=== PATIENT | female | born 1975 | race Caucasian/White ===

== ENCOUNTER 2024-05-24 22:12 | Emergency (ER) | payer SELFPAY ==
--- NOTE | ~2024-05-24 | XR_ITS ---
HISTORY: pain COMPARISON: None TECHNIQUE: 2 views of the left shoulder were performed. FINDINGS: No acute fracture. The glenohumeral and acromioclavicular joint space is maintained The visualized portion of the adjacent left lung is clear. The humeral head is well seated within the glenoid fossa. IMPRESSION: No acute fracture or anterior dislocation. Reviewed, dictated and finalized at location A. C SOFTWARE ENGINEER
[2024-05-24 22:13] VITALS: BP 171/82; PULSE 112; RESP 20; TEMP 36.4; O2SAT 100
--- OUTSIDE RECORDS SUMMARY | 2024-05-24 22:14 | XMS_ITS | Encounter Summary ---
Author Organization [facility] Address [address] [place] [address] Phone Care Team Providers Care Make Up Man Name Role Phone Leonides Sheriff MD Unavailable [phone] Garima Walters PT Unavailable Unavailable Pino, Vanita Rivera Unavailable Unavailable Jess Iyer PTA Unavailable Unavailable Isi Hernandez NP Primary Care Provider + [phone] Encounter Details Date Type Department Care Team (Latest Contact Info) Description 10/27/2020 Orders Only [facility] Scanning, Provider Social History Tobacco Use Types Packs/Day Years Used Date Smoking Tobacco: Former Smokeless Tobacco: Never AUDIT-C Answer Date Recorded Q1: How often do you have a drink containing alc ohol? Never 10/08/2020 Average Number of Drinks Not on file 021 Frequency of Binge Drinking Not on file 05/2020 Comments Unknown Sex and Gender Information Value Date Recorded Sex Assigned at Not on file Legal Sex Female 11:59 AM RAG SORTER AND CUTTER Gender Identity Not on file Sexual Orientation Not on file Occupation Industry Job Start Date Job End Date disabled Not on file Not on file Not on file documented as of this encounter Plan of Treatment Not on file documented as of this encounter Procedures Procedure Name Priority Date/Time Associated Diagnosis Comments SCAN - LABS 10/27/2020 documented in this encounter Results * SCAN - LABS (10/27/2020) us Provider Scanning Final Result documented in this encounter Visit Diagnoses Not on filedocumented in this encounter Additional Health Concerns Infection Onset Date Last Indicated Resolved Time COVID: Suspected 05/11/2023 05/11/2023 05/11/2023 10:52 PM RAG SORTER AND CUTTER documented as of this encounter Care Teams Make Up Man Relationship Specialty Start Date End Date Isi Hernandez, OFELIA [address] [address] PCP - General 05/06/20 [place] [id number] [address] Surgeon Orthopedic Surgery 03/20/17 Garima Walters, PT Physical Therapist Physical Therapy 04/25/17 Vanita Pino 05/09/17 Jess Iyer, ED TEACHER Quill Buncher And Sorter Physical Therapy 05/15/17 documented as of this encounter
--- OUTSIDE RECORDS SUMMARY | 2024-05-24 22:14 | XMS_ITS | Patient Health Summary ---
Author Organization [facility] Address [address] [place] [place] [address] Care Team Providers Care Ct Technologist Name Role Phone Nicolle Parekh Primary Care Provider [phone] Nicolle Parekh Unavailable Note from [facility],non-owned Affiliates and Associated Physician Practices is amultiple site organization consisting of ambulatory clinics and hospital sitesin [place], [place], [place] and [place]. This disclosure is being madepursuant to the Care Everywhere program and may not contain all information available regarding this patient. Last updated 17.[facility] Allergies * Prednisone(Unknown) Medications * Be aware that medications may not be up to date on this document. Alwaysverify current medications with the patient. * cyclobenzaprine (FLEXERIL) 10 MG tablet(Started 04/16/2017) * cetirizine (ALL DAY ALLERGY) 10 MG tablet(Started 03/07/2017) * FLUoxetine (PROZAC) 20 MG capsule(Started 04/12/2017) * montelukast (SINGULAIR) 10 MG tablet(Started 04/30/2017) * gabapentin (NEURONTIN) 300 MG capsule(Started 04/12/2017) * OXCARBAZEPINE PO * clonazePAM (KLONOPIN) 0.5 MG tablet Take 0.5 mg by mouth 2 times daily * TRUEPLUS LANCETS 30G MISC(Started 11/11/2018) * amLODIPine (NORVASC) 5 MG tablet(Started 11/11/2018) * cloNIDine (CATAPRES) 0.1 MG tablet(Started 02/24/2019) Take 0.1 mg by mouth * lithium CR (ESKALITH CR) 450 MG tablet(Started 06/04/2019) Active Problems No known active problems Social History Tobacco Use Types Packs/Day Years Used Date Smoking Tobacco: Never Smokeless Tobacco: Never Sex and Gender Information Value Date Recorded Sex Assigned at Not on file Gender Identity Not on file Sexual Orientation Not on file Last Filed Vital Signs Vital Sign Reading Time Taken Comments Blood Pressure - - Pulse - - Temperature - - Respiratory Rate - - Oxygen Saturation - - Inhaled Oxygen Concentration - - Weight 92.1 kg (203 lb) 01/07/2020 1:54 PM CDT Height 165.1 cm (5' 5 ) 01/07/2020 1:54 PM CDT Body Mass Index 33.78 01/07/2020 1:54 PM CDT Procedures * XR SPINE ENTIRE 2 OR 3VW(Performed 06/16/2019) Performed for Chronic midline low back pain with bilateral sciatica * XR LUMBAR SPINE 2 OR 3VW(Performed 05/08/2017) Results * XR SPINE ENTIRE 2 OR 3VW (06/16/2019 1:08 PM CDT) Anatomical Region Laterality Modality Spine Radiographic Gabrielle ging 06/16/2019 1:45 PM CDT Impressions 06/16/2019 1:48 PM CDT IMPRESSION: Instrumented spinal fusion at L4-5. This report was electronically signed by JEAN ARREDONDO MD on 06/16/2019 1:48 PM . Narrative 06/16/2019 1:48 PM CDT Exam: XR SPINE ENTIRE 2 view History: M54.41: Chronic midline low back pain with bilateral sciatica M54.42: Chronic midline low back pain with bilateral sciatica G89.29: Chronic midline low back pain with bilateral sciatica Comparison: None. Findings: Instrumented spinal fusion is present at L4-5 with posterior rods and screws. Instrumentation is intact. There is generally mild multilevel degenerative disc and joint disease with greater disc space narrowing at L5-S1 where it is moderate to severe. On the AP view there is mild thoracolumbar curvature of less than 10 degrees. Procedure Note Jean Arredondo MD - 06/16/2019 Exam: XR SPINE ENTIRE 2 view History: M54.41: Chronic midline low back pain with bilateral sciatica M54.42: Chronic midline low back pain with bilateral sciatica G89.29: Chronic midline low back pain with bilateral sciatica Comparison: None. Findings: Instrumented spinal fusion is present at L4-5 with posterior rods and screws. Instrumentation is intact. There is generally mild multilevel degenerative disc and joint disease with greater disc space narrowing at L5-S1 where it is moderate to severe. On the AP view there is mild thoracolumbar curvature of less than 10 degrees. IMPRESSION: Instrumented spinal fusion at L4-5. This report was electronically signed by JEAN ARREDONDO MD on06/16/2019 1:48 PM . Betty Santa MD DIAGNOSTIC IMAGING O RDERABLES * XR LUMBAR SPINE 2 OR 3VW (05/08/2017 2:21 PM HEARING SPECIALIST) Anatomical Region Laterality Modality Spine Other Impressions 05/08/2017 2:36 PM HEARING SPECIALIST IMPRESSION: Instrumented spinal fusion at L5-S1. This report was electronically signed by JEAN ARREDONDO MD on 05/08/2017 2:36 PM . Narrative 05/08/2017 2:36 PM HEARING SPECIALIST Exam: XR SPINE LUMBAR 2 view History: chronic pain Comparison: None. Findings: Instrumented posterior spinal fusion is present at L5-S1 with posterior vertical rods and pedicle screws. No fracture or subluxation is seen. There is moderate degenerative disc disease at L5-S1 and mild degenerative disc disease at the other levels. There is facet osteoarthritis at L5-S1. Procedure Note Jean Arredondo MD - 07/11/2017 Exam: XR SPINE LUMBAR 2 view History: chronic pain Comparison: None. Findings: Instrumented posterior spinal fusion is present at L5-S1 with posteriorvertical rods and pedicle screws. No fracture or subluxation is seen.There is moderate degenerative disc disease at L5-S1 and mild degenerativedisc disease at the other levels. There is facet osteoarthritis at L5-S1. IMPRESSION IMPRESSION: Instrumented spinal fusion at L5-S1. This report was electronically signed by JEAN ARREDONDO MD on 05/08/20172:36 PM . Karine Abdul PA-C DIAGNOSTIC IMAG ING ORDERABLES Care Teams Ct Technologist Relationship Specialty Start Date End Date Nicolle Parekh PA [address] [place] [address] PCP - General 09/13/18 Nicolle Parekh PA [address] [place] [address] 09/13/18
--- OUTSIDE RECORDS SUMMARY | 2024-05-24 22:14 | XMS_ITS ---
Author Organization [facility] Address [address] [place] [address] [place] [id number] Care Team Providers Care Director Of Casework Services Name Role Phone BALTA LOPEZ Primary Care Provider [phone] REASON FOR VISIT med issues MEDICATIONS Medication SIG (Take, Route, Frequency, Duration) Notes Start Date End Date Status amLODIPine Besylate 5 MG Take 1 tablet b y mouth once daily for 30 days Active Doxepin HCl 75 MG 1 tablet at bedtime Orally Once a day for 30 days Active Atorvastatin Calcium 80 MG 1 tablet Oral ly Once a day for 30 day(s) Active Encounters Encounter Location Date Provider Diagnosis [facility] [address] [facility] [address] [place] [phone] 03/15/2023 BALTA LOPEZ Medication refill Z76.0 ASSESSMENTS Encounter Date Diagnosis Assessment Notes Treatment Notes Treatment Clinical Notes 03/15/2023 Medication refill (ICD-10 - Z76.0) PLAN OF TREATMENT Medication Medication Name Sig Start Date Stop Date Notes amLODIPine Besylate 5 MG Take 1 tablet b y mouth once daily for 30 days Doxepin HCl 75 MG 1 tablet at bedtime Orally Once a day for 30 days Atorvastatin Calcium 80 MG 1 tablet Oral ly Once a day for 30 day(s)
--- OUTSIDE RECORDS SUMMARY | 2024-05-24 22:14 | XMS_ITS | Referral Summary ---
Author Organization [facility] Address [address] [place] [address] Care Team Providers Care Bun Icer Name Role Phone Nicolle Parekh Primary Care Provider [phone] Nicolle Parekh Unavailable Source Comments [facility],non-owned Affiliates and Associated Physician Practices is amultiple site organization consisting of ambulatory clinics and hospital sitesin [place], [place], [place] and [place]. This disclosure is being madepursuant to the Care Everywhere program and may not contain all information available regarding this patient. Last updated 17.[facility] Allergies Active Allergy Reactions Criticality Noted Date Comments Prednisone Unknown 08/21/2017 Medications * Be aware that medications may not be up to date on this document. Alwaysverify current medications with the patient. Medication Sig Dispensed Refills Start Date End Date Status cyclobenzaprine (FLEXERIL) 10 MG tablet 04/16/2017 A ctive cetirizine (ALL DAY ALLERGY) 10 MG tablet 03/07/2017 Act rufino FLUoxetine (PROZAC) 20 MG capsule 04/12/2017 Active montelukast (SINGULAIR) 10 MG tablet 04/30/2017 Active gabapentin (NEURONTIN) 300 MG capsule 04/12/2017 Active OXCARBAZEPINE PO Active clonazePAM (KLONOPIN) 0.5 MG tablet Take 0.5 mg by mouth 2 times daily Active TRUEPLUS LANCETS 30G MISC 11/11/2018 Active amLODIPine (NORVASC) 5 MG tablet 11/11/2018 Active cloNIDine (CATAPRES) 0.1 MG tablet Take 0.1 mg by mouth 02/24/2019 Active lithium CR (ESKALITH CR) 450 MG tablet 06/04/2019 Active Active Problems No known active problems Social [...] Mass Index 33.78 01/07/2020 1:54 PM CDT Plan of Treatment Not on file Advance Directives Documents on File Type Date Recorded Patient Medical Affairs Specialist Expl anation Adv Directive/Living Will/POA 06/18/2019 11:34 AM [facility] Care Teams Bun Icer Relationship Specialty Start Date End Date Nicolle Parekh PA [address] [place] [address] PCP - General 09/13/18 Nicolle Parekh PA [address] [place] [address] 09/13/18
--- OUTSIDE RECORDS SUMMARY | 2024-05-24 22:14 | XMS_ITS ---
Author Organization [facility] Address [address] [place], [place] [id number] Care Team Providers Care Resolution Specialist Name Role Phone BALTA LOPEZ Primary Care Provider Stacia Hernandez Unavailable [phone] REASON FOR VISIT 1 month f/u Encounters Encounter Location Date Provider Diagnosis [facility] [address] [place], [place] [id number] 04/12/2023 Stacia Hernandez PLAN OF TREATMENT No Information
--- OUTSIDE RECORDS SUMMARY | 2024-05-24 22:14 | XMS_ITS ---
Author Organization [facility] Address [address] [facility] [place] [address] Care Team Providers Care Service Agent Name Role Phone SAVANNAH HUFF, EHAB Primary Care Provider Unavailabl RITO Travis Unavailable [phone] SHANI SLAUGHTER Unavailable [phone] Encounters Encounter Location Date Provider Diagnosis [facility] [address] [address] 01/26/2023 SHANI SLAUGHTER PLAN OF TREATMENT No Information
--- OUTSIDE RECORDS SUMMARY | 2024-05-24 22:15 | XMS_ITS | Encounter Summary ---
Author Organization [facility] Address [address] [place] [address] Care Team Providers Care Boat Outfitter Name Role Phone Leonides Sheriff MD Unavailable [phone] Demarcus Chand SENIOR RELATIONSHIP MANAGER Primary Care Provider + Garima Walters PT Unavailable Unavailable Pino, Vanita Rivera Unavailable Unavailable Jess Iyer PTA Unavailable Unavailable Isi Hernandez NP Primary Care Provider [phone] Encounter Details Date Type Department Care Team (Late st Contact Info) Description 01/26/2020 Telephone [facility] [address] [place] [address] Jacobo Kelley, RT Social History Tobacco Use Types Packs/Day Years Used Date Smoking Tobacco: Former Smokeless Tobacco: Never Comments Unknown Sex and Gender Information Value Date Recorded Sex Assigned at Not on file Legal Sex Female 11:59 AM ALARM SECURITY OR SURVEILLANCE MONITOR Gender Identity Not on file Sexual Orientation Not on file Occupation Industry Job Start Date Job End Date disabled Not on file Not on file Not on file documented as of this encounter Plan of Treatment Not on file documented as of this encounter Visit Diagnoses Not on filedocumented in this encounter Additional Health Concerns Infection Onset Date Last Indicated Resolved Time COVID: Suspected 05/11/2023 05/11/2023 05/11/2023 10:52 PM ALARM SECURITY OR SURVEILLANCE MONITOR documented as of this encounter Care Teams Boat Outfitter Relationship Specialty Start Date End Date Demarcus Chand, OFELIA [address] [place] [address] [facility] [address] [place] [address] PCP - General 04/25/17 05/05/20 Isi Hernandez NP [address] [address] PCP - General 05/06/20 [place] [address] [address] Surgeon Orthopedic Surgery 03/20/17 Garima Walters, PT Physical Therapist Physical Therapy 04/25/17 Vanita Pino 05/09/17 Jess Iyer, WATER POLLUTION CONTROL TECHNICIAN Aerial Crop Duster Physical Therapy 05/15/17 documented as of this encounter
--- OUTSIDE RECORDS SUMMARY | 2024-05-24 22:15 | XMS_ITS | Clinical Summary ---
Author Organization [facility] Address [address] [place] [address] Care Team Providers Care Ornamental Bronze Worker Name Role Phone Nicolle Parekh Primary Care Provider [phone] Nicolle Parekh Unavailable Source Comments [facility],non-owned Affiliates and Associated Physician Practices is amultiple site organization consisting of ambulatory clinics and hospital sitesin [place], [place], [place] and [place]. This disclosure is being madepursuant to the Care Everywhere program and may not contain all information available regarding this patient. Last updated 17.[facility] Allergies Active Allergy Reactions Criticality Noted Date [...] 01/07/2020 1:54 PM CDT Plan of Treatment Health Maintenance Due Date Last Done Comments COLOGUARD (AGES 45-75) - COL ON CA SCREENING 1977 COLON MONITORING 1977 COLONOSCOPY - COLON CA SCREENING 1977 CT COLONOGRAPHY - COLON CA SCREENING 1977 Colorectal Cancer Screening 1977 FIT - COLON CA SCREENING 1977 FLEX SIG - COLON CA SCREENING 1977 LIPID TESTING 1977 MAMMOGRAM 1977 PAP SMEAR 1977 HIV SCREENING 1992 HEPATITIS C SCREENING 11/15/1995 DTAP/TDAP/TD VACCINES (1 - Tdap) 1996 HEPATITIS B VACCINE (1 of 3 - 19+ 3-dose series) 1996 SCREENING FOR DIABETES 11/28/2018 COVID-19 VACCINE ( - 2023-2 5 season) 2023 INFLUENZA VACCINE (#1) 2023 DEPRESSION SCREENING 04/09/2024 ZOSTER VACCINE (1 of 2) 11/20/2027 HIB VACCINE Aged Out No longer eligi ble based on patient's age to complete this topic HPV VACCINE Aged Out No longer eligi ble based on patient's age to complete this topic MENINGOCOCCAL (Group B) VACCINE Aged Out No longer eligible based on patient's age to complete this topic MENINGOCOCCAL VACCINE Aged Out No mike rosa isela eligible based on patient's age to complete this topic PNEUMOCOCCAL VACCINE Aged Out No long er eligible based on patient's age to complete this topic Advance Directives Documents on File Type Date Recorded Patient Hog Grader Expl anation Adv Directive/Living Will/POA 06/18/2019 11:34 AM [facility] Care Teams Ornamental Bronze Worker Relationship Specialty Start Date End Date Nicolle Parekh PA [address] [place] [phone] PCP - General 09/13/18 Nicolle Parekh PA [address] [place] [phone] 09/13/18
--- OUTSIDE RECORDS SUMMARY | 2024-05-24 22:15 | XMS_ITS ---
Author Organization [facility] Address [address] [facility] [place] [address] Care Team Providers Care Detacher Name Role Phone SAVANNAH HUFF, EHAB Primary Care Provider Unavailabl e RITO NUÑEZ Unavailable [phone] ELISSA MONTEMAYOR Unavailable [phone] Encounters Encounter Location Date Provider Diagnosis [facility] [address] [place] [address] 02/09/2023 ELISSA MONTEMAYOR PLAN OF TREATMENT No Information
--- OUTSIDE RECORDS SUMMARY | 2024-05-24 22:15 | XMS_ITS | Referral Summary ---
Author Organization [facility] [address] [place] [address] Care Team Providers Care Digital Performance Analyst Name Role Phone Leonides Sheriff MD Unavailable [phone] Garima Walters PT Unavailable Unavailable Pino, Vanita Rivera Unavailable Unavailable Jess Iyer PTA Unavailable Unavailable sIi Hernandez NP Primary Care Provider [phone] Allergies Active Allergy Reactions Criticality Noted Date Comments Methylprednisolone Other (See comments) Low 019 Patient reports history of reaction when mixed with heavy pain killers like Vicodin. Prednisone Unknown 08/21/2017 Propranolol Rash Medium 08/22/2021 Quetiapine Hives Medium 08/22/2021 Medications cyclobenzaprin e (FLEXERIL) 10 mg tablet 10/31/19 17 Active gabapentin (NEURONTIN) 300 mg capsule 10/27/19 17 Active HYDROcodone-ac etaminophen (NORCO) 5-325 mg per tabletIndicati ons:Pain 11/22/19 17 Active lamoTRIgine (LaMICtal) 100 mg tablet 10/27/19 17 Active meloxicam (MOBIC) 15 mg tablet Take 15 mg by mouth daily 10/31/19 17 Active montelukast (SINGULAIR) 10 mg tablet 10/31/19 17 Active polyethylene glycol (MIRALAX) 17 gram packet 11/25/19 17 Active traMADol (ULTRAM) 50 mg tablet 11/08/19 17 Active traZODone (DESYREL) 100 mg tablet 10/27/19 17 Active amoxicillin (AMOXIL) 250 mg capsule Take 250 mg by mouth 3 (three) times a day. Active metroNIDAZOLE (FLAGYL) 500 mg tablet Take 500 mg by mouth 2 (two) times a day Active ergocalciferol , vitamin D2, 10 mcg (400 unit) tablet Take 400 Units by mouth daily Active azithromycin (Zithromax Z-Srikanth) 250 mg tabletIndicati ons:Acute maxillary sinusitis, recurrence not specified Take 2 tabs (500 mg) by mouth today, then 1 tab (250 mg) daily for 4 days. 6 tablet 03/16/20 21 Active azelastine (ASTELIN) 137 mcg (0.1 %) nasal sprayIndicatio ns:Allergic rhinitis due to animal hair and dander Administer 2 sprays into each nostril 2 (two) times a day Use in each nostril as directed 30 mL 5 03/18/20 21 Active blood sugar diagnostic (ONETOUCH ULTRA BLUE TEST STRIP [facility]) USE 1 STRIP TO CHECK GLUCOSE ONCE DAILY Active guaiFENesin ER (Mucinex) 600 mg 12 hr tablet 02/24/20 17 Active ibuprofen (ADVIL,MOTRIN) 800 mg tablet 04/30/19 18 Active albuterol HFA (PROVENTIL HFA,VENTOLIN HFA,PROAIR HFA) 90 mcg/actuation inhaler INHALE 2 PUFFS BY MOUTH EVERY 4 HOURS NEEDED Active ALPRAZolam (XANAX) 0.25 mg tablet Take 1 tab 60 min prior to procedure, repeat dose 30 min later as needed 03/13/20 19 Active amLODIPine (NORVASC) 10 mg tablet 06/10/19 22 Active clonazePAM (KlonoPIN) 0.5 mg tablet Take 0.5 mg by mouth 2 (two) times a day Active cloNIDine (CATAPRES) 0.1 mg tablet Take 0.1 mg by mouth 02/25/20 19 Active FLUoxetine (PROzac) 20 mg capsule 04/12/19 18 Active lithium ER (ESKALITH) 450 mg CR tablet 06/04/19 20 Active camphor-mentho L (SARNA) lotion Apply to areas of itching twice daily 05/19/19 21 Active OXcarbazepine (TRILEPTAL) 600 mg tablet Take 600 mg by mouth 2 (two) times a day 02/25/20 19 Active QUEtiapine (SEROquel) 100 mg tablet 04/12/19 18 Active TiZANidine (ZANAFLEX) 2 mg capsule Take 2 mg by mouth 3 (three) times a day as needed 06/24/19 20 Active triamcinolone (KENALOG) 0.5 % ointment APPLY A THIN LAYER TO THE AFFECTED AREA(S) BY TOPICAL ROUTE 2 TIMES PER DAY Active cetirizine (ZyrTEC) 10 mg tabletIndicati ons:Pruritus Take 1 tablet (10 mg total) by mouth daily 30 tablet 5 09/10/19 22 Active doxepin (SINEquan) 25 mg capsuleIndicat ions:Pruritus TAKE 2 CAPSULES BY MOUTH NIGHTLY 60 capsule 07/15/19 23 Active hydrOXYzine (ATARAX) 25 mg tablet TAKE 1 TABLET BY MOUTH THREE TIMES DAILY NEEDED FOR ITCHING 90 tablet 07/15/19 23 Active promethazine-D M (PROMETHAZINE- DM) 1.25-3 mg/mL syrupIndicatio ns:Upper respiratory tract infection, unspecified type Take 5 mL by mouth 4 (four) times a day as needed for cough (And runny nose) Collaborating physician Espinoza Hamilton MD 118 mL 05/11/19 24 Active naproxen (NAPROSYN) 375 mg tabletIndicati ons:Upper respiratory tract infection, unspecified type,Acute sinusitis, recurrence not specified, unspecified location Take 1 tablet (375 mg total) by mouth 2 (two) times a day with meals P.r.n. pain and/or fever. Take with food. Collaborating physician Espinoza Hamilton MD 20 tablet 05/11/19 24 Active fexofenadine (Prema Allergy) 180 mg tablet Take 1 tablet daily in morning 05/19/19 21 2021 Discontinued Active Problems Problem Noted Date Diagnosed Date Upper respiratory tract infection 05/11/2023 Essential hypertension 04/15/2019 Bipolar disorder 09/25/2016 Immunizations Name Administration Dates Next Due Influenza, Quadrivalent, Split, Intramuscular Tdap 04/09/2015 Social History Tobacco Use Types Packs/Day Years Used Date Smoking Tobacco: Former Smokeless Tobacco: Never AUDIT-C Answer Date Recorded Q1: How often do you have a drink containing alc ohol? Never 10/08/2020 Average Number of Drinks Not on file 021 Frequency of Binge Drinking Not on file 05/2020 Personal Safety Answer Date Recorded Have you ever been in or are you currently in a harmful physical or emotional relationship or is someone making you feel afraid or unsafe? Denies 05/11/2023 Comments No Sex and Gender Information Value Date Recorded Sex Assigned at Not on file Legal Sex Female 11:59 AM RADIATOR SPECIALIST Gender Identity Not on file Sexual Orientation Not on file Occupation Industry Job Start Date Job End Date disabled Not on file Not on file Not on file Last Filed Vital Signs Vital Sign Reading Time Taken Comments Blood Pressure 146/87 05/11/2023 8:13 PM RADIATOR SPECIALIST Pulse 99 05/11/2023 8:13 PM RADIATOR SPECIALIST Temperature 36.1 C (96.9 F) 05/11/2023 8:13 PM RADIATOR SPECIALIST Respiratory Rate 16 05/11/2023 8:13 PM RADIATOR SPECIALIST Oxygen Saturation 98% 05/11/2023 8:13 PM RADIATOR SPECIALIST Inhaled Oxygen Concentration - - Weight 92.1 kg (203 lb) 05/11/2023 8:13 PM RADIATOR SPECIALIST Height 162.6 cm (5' 4 ) 05/11/2023 8:13 PM RADIATOR SPECIALIST Body Mass Index 34.84 05/11/2023 8:13 PM RADIATOR SPECIALIST Plan of Treatment Not on file Insurance [facility] Care Teams Digital Performance Analyst Relationship Specialty Start Date End Date Isi Hernandez NP [address] [address] PCP - General 05/06/20 [place] [id number] [address] Surgeon Orthopedic Surgery 03/20/17 Garima Walters, PT Physical Therapist Physical Therapy 04/25/17 Vanita Pino 05/09/17 Jess Iyer, ASBESTOS TEXTILE SUPERVISOR Director Of Sleep Physical Therapy 05/15/17
--- OUTSIDE RECORDS SUMMARY | 2024-05-24 22:15 | XMS_ITS ---
Author Organization [facility] Address [address] [place], [place] [id number] Care Team Providers Care Defense Travel Administrator Name Role Phone BALTA LOPEZ Primary Care Provider Abi Rothman [phone] REASON FOR VISIT Preparation for 04/12/2023 follow-up appointment Encounters Encounter Location Date Provider Diagnosis [facility] [address] [place], [place] [id number] 04/10/2023 Abi Rothman PLAN OF TREATMENT No Information
--- OUTSIDE RECORDS SUMMARY | 2024-05-24 22:15 | XMS_ITS | Clinical Summary ---
Author Organization [facility] [address] [place] [address] Care Team Providers Care Diesel Engine Fitter Name Role Phone Leonides Sheriff MD Unavailable [phone] Garima Walters PT Unavailable Unavailable Pino, Vanita Rivera Unavailable Unavailable Jess Iyer PTA Unavailable Unavailable Isi Hernandez NP Primary Care Provider [phone] Allergies Active Allergy Reactions Criticality Noted Date [...] sugar diagnostic (ONETOUCH ULTRA BLUE TEST STRIP [facility]) USE 1 STRIP TO CHECK GLUCOSE ONCE [...] Due Influenza, Quadrivalent, Split, Intramuscular Tdap 04/09/2015 Surgical History Surgery Date Site/Laterality Comments BACK SURGERY 04/09/2003 - 04/08/2004 L4 L5 TUBAL LIGATION STOMACH SURGERY Infection Near Belly Button FL UPPER GI AIR CONTRAST W KUB 08/28/2019 Left FL UPPER GI AIR CONTRAST W KUB 04/30/2019 Left Medical History Medical History Date Comments Anxiety Depression Family History Medical History Relation Name Comments Depression Father Diabetes Mother Asthma Sister Relation Name Status Comments Father Mother Sister Social History Tobacco Use Types Packs/Day Years Used Date Smoking Tobacco: Former Smokeless Tobacco: Never AUDIT-C Answer Date Recorded Q1: How often do you have a drink containing alc ohol? Never 10/08/2020 Average Number of Drinks Not on file Frequency of Binge Drinking Not on file 05/2020 Personal Safety Answer Date Recorded Have you ever been in or are you currently in a harmful physical or emotional relationship or is someone making you feel afraid or unsafe? Denies 05/11/2023 Comments No Sex and Gender Information Value Date Recorded Sex Assigned at Not on file Legal Sex Female 11:59 AM STATISTICAL PROGRAMMER Gender Identity Not on file Sexual Orientation Not on file Occupation Industry Job Start Date Job End Date disabled Not on file Not on file Not on file Obstetrics History Last Filed Vital Signs Vital Sign Reading Time Taken Comments Blood Pressure 146/87 05/11/2023 8:13 PM STATISTICAL PROGRAMMER Pulse 99 05/11/2023 8:13 PM STATISTICAL PROGRAMMER Temperature 36.1 C (96.9 F) 05/11/2023 8:13 PM STATISTICAL PROGRAMMER Respiratory Rate 16 05/11/2023 8:13 PM STATISTICAL PROGRAMMER Oxygen Saturation 98% 05/11/2023 8:13 PM STATISTICAL PROGRAMMER Inhaled Oxygen Concentration - - Weight 92.1 kg (203 lb) 05/11/2023 8:13 PM STATISTICAL PROGRAMMER Height 162.6 cm (5' 4 ) 05/11/2023 8:13 PM STATISTICAL PROGRAMMER Body Mass Index 34.84 05/11/2023 8:13 PM STATISTICAL PROGRAMMER Plan of Treatment Health Maintenance Due Date Last Done Comments Breast Cancer Screening-Mammogram 1977 Cervical Cancer Screening 1977 Colon Cancer Screening-Colonoscopy 1977 Depression Screening 1977 Hepatitis C Screening 1977 Hepatitis B Screening 11/20/1995 Regular Well Visit/Exam 18-64 11/20/1995 Influenza Vaccine (#1) 2023 03/07/2017 DTaP/Tdap/Td Vaccine (2 - Td or Tdap) 04/09/2025 04/09/2015 HPV Vaccines Aged Out No longer eligi ble based on patient's age to complete this topic Pneumococcal vaccine <65 Aged Out No longer eligible based on patient's age to complete this topic Insurance [employer] [facility] [employer] [facility] [employer] Care Teams Diesel Engine Fitter Relationship Specialty Start Date End Date Isi Hernandez NP [address] [address] PCP - General 05/06/20 [place] [address] [address] Surgeon Orthopedic Surgery 03/20/17 Garima Waltres, PT Physical Therapist Physical Therapy 04/25/17 Vanita Pino 05/09/17 Jess Iyer, FIELD PARTY MANAGER Accredited Legal Secretary Physical Therapy 05/15/17
--- OUTSIDE RECORDS SUMMARY | 2024-05-24 22:15 | XMS_ITS | Patient Health Record ---
Author Organization [facility] Address [address] [facility] [place] [address] Care Team Providers Care Precision Lens Technician Name Role Phone SAVANNAH HUFF, EHAB Primary Care Provider Unavailabl RITO Travis Unavailable [phone] REASON FOR REFERRAL No Information PLAN OF TREATMENT No Information Insurance Providers Payer Name Payer Address Payer Phone Subscriber Number Group Number Insured Name Patient Relationship to Insured Coverage Start Date Coverage End Date [employer] [address] [address] [place] [address] [phone] [id number] Silvino Carrillo Self - patient is the insured
--- OUTSIDE RECORDS SUMMARY | 2024-05-24 22:15 | XMS_ITS | Encounter Summary ---
Author Organization [facility] Address [address] [place] [address] Care Team Providers Care Gypsum Calciner Name Role Phone Leonides Sheriff MD Unavailable [phone] Garima Walters PT Unavailable Unavailable Pino, Vanita Rivera Unavailable Unavailable Jess Iyer PTA Unavailable Unavailable Isi Hernandez ENERGY SCHEDULER Primary Care Provider [phone] Encounter Details Date Type Department Care Team (Late st Contact Info) Description 07/30/2020 Telephone [facility] [address] [place] [id number] Alma Jones, RT Social History Tobacco Use Types Packs/Day Years Used Date Smoking Tobacco: Former Smokeless Tobacco: Never Comments Unknown Sex and Gender Information Value Date Recorded Sex Assigned at Not on file Legal Sex Female 11:59 AM JEWEL BLOCKER AND SAWYER Gender Identity Not on file Sexual Orientation [...] COVID: Suspected 05/11/2023 05/11/2023 05/11/2023 10:52 PM JEWEL BLOCKER AND SAWYER documented as of this encounter Care Teams Gypsum Calciner Relationship Specialty Start Date End Date Isi Hernandez NP [address] [address] PCP - General 05/06/20 [place] [address] [facility] [address] [place] [address] Surgeon Orthopedic Surgery 03/20/17 Garima Walters, PT Physical Therapist Physical Therapy 04/25/17 Vanita Pino 05/09/17 Jess Iyer, LAYOUT MECHANIC Spareribs Trimmer Physical Therapy 05/15/17 documented as of this encounter
--- OUTSIDE RECORDS SUMMARY | 2024-05-24 22:15 | XMS_ITS | Patient Health Record ---
Author Organization [facility] Address [address] [place], [place] [id number] Care Team Providers Care Horseradish Maker Name Role Phone BALTA LOPEZ Primary Care Provider [phone] ALLERGIES No Known Allergies REASON FOR REFERRAL No Information MEDICATIONS Medication SIG (Take, Route, Frequency, Duration) Notes Start Date End Date Status amLODIPine Besylate 5 MG Take 1 tablet b y mouth once daily for 30 days Active hydrOXYzine Pamoate 25 MG 1 capsule Oral ly three times a day for itching Active Doxepin HCl 75 MG 1 tablet at bedtime Orally Once a day for 30 days Active Zofran ODT 4 MG 1 tablet on the tongue and allow to dissolve Orally Once a day for 30 day(s) Active busPIRone HCl 15 MG 1 tablet Oral Twice a day Active buPROPion HCl ER (XL) 300 MG Oral for 30 Active Atorvastatin Calcium 80 MG 1 tablet Oral ly Once a day for 30 day(s) Active Cyclobenzaprine HCl 10 MG 1 tablet at be dtime as needed Orally Once a day for 30 day(s) Not-Taking ALPRAZolam 0.25 MG 1 tablet Orally Twic e a day Not-Taking Methocarbamol 500 MG 1 tablet Oral Four times a day as needed Active Cetirizine HCl 10 MG 1 tablet Orally Onc e a day for 30 day(s) Not-Taking traZODone HCl 50 MG 1 tablet at bedtime Oral Once a day Not-Taking cloNIDine HCl 0.1 MG 1 tablet Orally Onc e a day for 30 day(s) Not-Taking OXcarbazepine 150 MG 1 tablet Orally Twi ce a day Active ARIPiprazole 10 MG 1 tablet Orally Once a day for 30 day(s) Active Montelukast Sodium 10 MG 1 tablet Orally Once a day for 30 day(s) Not-Taking Benztropine Mesylate 1 MG 1 tablet Orall y Once a day for 30 day(s) Active Meloxicam 15 MG 1 tablet Orally Once a day for 30 day(s) Not-Taking Gabapentin 600 MG 1 tablet Orally Once a day for 30 day(s) Active FLUoxetine HCl 20 MG 1 capsule Orally On ce a day for 30 day(s) Not-Taking Robaxin 500 MG 1.5 tablets Orally every 4 hrs for 30 day(s) Active SOCIAL HISTORY Tobacco Use: Social History Observation Description Date Details (start date - stop date) Never Smoker NA - NA Sex Assigned At : Social History Observation Description Sex Assigned At Unknown Tobacco Use/Smoking Question Answer Notes Are you a nonsmoker Additional Findings: Tobacco Non-User Aggressive non-smoker Tobacco use other than smoking: Question Answer Notes Are you an other tobacco user? Yes V ape PROBLEMS Problem Type ICD Code Onset Dates Problem Status W/U Status Risk SNOMED Code Notes Problem Essential (primary) hypertension (I10) Active confirmed 33779392 Problem Mood disorder (F39) Active confirmed 33903095 Problem Depression with anxiety (F41.8) Active confirmed 098192810 Problem Bipolar affective disorder, remission status unspecified (F31.9) Active confirmed 84402469 Problem Muscle spasm (M62.838) Active confirmed 95894522 Problem Thyroid nodule (E04.1) Active confirmed Thyroid nodule (881615983) Problem Seasonal allergies (J30.2) Active confirmed 665103328 Problem Chronic insomnia (F51.04) Active confirmed 280379204 Problem Borderline type 2 diabetes mellitus (R73.03) Active confirmed 395510174 Problem Low back pain, unspecified (M54.50) Active confirmed 186759866 PLAN OF TREATMENT Pending Test Test Name Order Date CBC and Plt w Diff 05/03/2022 CMP 05/03/2022 Folic Acid Level 05/03/2022 Hga1c 05/03/2022 Lipid Panel w Direct LDL. 05/03/2022 Magnesium Level 05/03/2022 Microalbumin Urine Random 05/03/2022 TSH 05/03/2022 Vitamin B12 Level 05/03/2022 Vitamin D 25 Hydroxy Level 05/03/2022 US Thyroid 03/14/2023 Insurance Providers Payer Name Payer Address Payer Phone Subscriber Number Group Number Insured Name Patient Relationship to Insured Coverage Start Date Coverage End Date [facility] [address] [address] [place] [id number] Sarah Carrillo Self - patient is the insured MEDICAL (GENERAL) HISTORY Medical History History ICD Code Biopoloar Depression Hypertension Surgical History Surgery Date(Month/Year) Tubal 1999 Back Lower Lumbar 2004
--- OUTSIDE RECORDS SUMMARY | 2024-05-24 23:51 | XMS_ITS | Clinical Summary ---
Author Organization [facility] Address [address] [facility] [place] [address] Care Team Providers Care Aircraft Servicer Name Role Phone Nicolle Parekh Primary Care Provider [phone] Nicolle Parekh Unavailable Source Comments [facility],non-owned Affiliates and Associated Physician Practices is amultiple site organization consisting of ambulatory clinics and hospital sitesin [place], [place], [place] and [place]. This disclosure is being madepursuant to the Care Everywhere program and may not contain all information available regarding this patient. Last updated 17.[facility] Allergies Active Allergy Reactions Criticality Noted Date [...] Documents on File Type Date Recorded Patient Welfare Administrator Expl anation Adv Directive/Living Will/POA 06/18/2019 11:34 AM [facility] Care Teams Aircraft Servicer Relationship Specialty Start Date End Date Nicolle Parekh PA [address] [place] [id number] PCP - General 09/13/18 Nicolle Parekh PA [address] [place] [phone] 09/13/18
--- OUTSIDE RECORDS SUMMARY | 2024-05-24 23:51 | XMS_ITS | Patient Health Summary ---
Author Organization [facility] Address [address] [place] [address] Care Team Providers Care Packaging Tech Name Role Phone Nicolle Parekh Primary Care Provider [phone] Nicolle Parekh Unavailable Note from [facility],non-owned Affiliates and Associated Physician Practices is amultiple site organization consisting of ambulatory clinics and hospital sitesin [place], [place], [place]. This disclosure is being madepursuant to the Care Everywhere program and may not contain all information available regarding this patient. Last updated 17.[facility] Allergies * Prednisone(Unknown) Medications * Be aware [...] SPINE 2 OR 3VW (05/08/2017 2:21 PM LIQUOR GRINDING MILL OPERATOR) Anatomical Region Laterality Modality Spine Other Impressions 05/08/2017 2:36 PM LIQUOR GRINDING MILL OPERATOR IMPRESSION: Instrumented spinal fusion at L5-S1. This report was electronically signed by JEAN ARREDONDO MD on 05/08/2017 2:36 PM . Narrative 05/08/2017 2:36 PM LIQUOR GRINDING MILL OPERATOR Exam: XR SPINE LUMBAR 2 view History: [...] PA-C DIAGNOSTIC IMAG ING ORDERABLES Care Teams Packaging Tech Relationship Specialty Start Date End Date Nicolle Parekh PA [address] [place] [address] PCP - General 09/13/18 Nicolle Parekh PA [address] [place] [address] 09/13/18
--- OUTSIDE RECORDS SUMMARY | 2024-05-24 23:51 | XMS_ITS | Referral Summary ---
Author Organization [facility] Address [address] [facility] [place] [address] Care Team Providers Care Press Cutter Name Role Phone Nicolle Parekh Primary Care Provider [phone] Nicolle Parekh Unavailable Source Comments [facility],non-owned Affiliates and Associated Physician Practices is amultiple site organization consisting of ambulatory clinics and hospital sitesin [place], [place], [place] and [place]. This disclosure is being madepursuant to the Care Everywhere program and may not contain all information available regarding this patient. Last updated 17.[facility] Allergies Active Allergy Reactions Criticality Noted Date [...] Documents on File Type Date Recorded Patient Telecom Sales Consultant Expl anation Adv Directive/Living Will/POA 06/18/2019 11:34 AM [facility] Care Teams Press Cutter Relationship Specialty Start Date End Date Nicolle Parekh PA [address] [place] [address] PCP - General 09/13/18 Nicolle Parekh PA [address] [place] [phone] 09/13/18
--- OUTSIDE RECORDS SUMMARY | 2024-05-24 23:52 | XMS_ITS | Clinical Summary ---
Author Organization [facility] [employer] Address [address] [place] [address] Care Team Providers Care Management Coordinator Name Role Phone Pcp, No Primary Care Provider Unavailabl e Allergies Active Allergy Reactions Criticality Noted Date Comments Prednisone 02/18/2024 Has no idea what happens just knows she can't have it. Medications semaglutide (RYBELSUS) 3 mg Tab Take 3 mg by mouth daily. Active cyclobenzaprine (FLEXERIL) 10 MG tablet Take 1 tablet by mouth 3 (three) times daily as needed for Muscle spasms. Active hydrOXYzine (ATARAX) 10 MG tablet Take 1 tablet by mouth 3 (three) times daily as needed. Active trazodone (DESYREL) 50 MG tablet Take 1 tablet by mouth nightly. Active gabapentin (NEURONTIN) 600 MG tablet Take 1 tablet by mouth 3 (three) times daily as needed. Active glipizide (GLUCOTROL) 5 MG tabletIndicatio ns:Diabetes Take 1 tablet by mouth 2 times daily before meals for 30 days for Diabetes. 60 tablet 02/19/2024 1:49 PM PHOTO LAB TECHNICIAN 02/18/2024 Active blood sugar diagnostic StrpIndications :Diabetes Use as directed once daily. 90 each 3 02/19/2024 1:49 PM PHOTO LAB TECHNICIAN 02/18/2024 02/18/20 25 Active blood sugar diagnostic (ONETOUCH VERIO TEST STRIPS) StrpIndications :Diabetes Check blood sugar twice daily for Diabetes. 100 strip 5 02/19/2024 Active blood-glucose meter kitIndications: Encounter for medication refill Use as instructed. 1 each 02/20/2024 Active butalbital-acet aminophen-caffe ine (FIORICET) 50-325-40 mg per tabletIndicatio ns:Migraine Take 1 tablet by mouth every 6 hours as needed for Pain for Migraine. 15 tablet 04/01/2024 10:24 AM PHOTO LAB TECHNICIAN 03/31/2024 Active amLODIPIne (NORVASC) 5 MG tabletIndicatio ns:High Blood Pressure Take 1 tablet by mouth daily for High Blood Pressure. 90 tablet 04/10/2024 2:00 PM PHOTO LAB TECHNICIAN 04/09/2024 07/10/19 25 Active doxepin (SINEQUAN) 25 MG capsuleIndicati ons:Anxiety Take 1 capsule by mouth nightly for Anxiety. 90 capsule 04/10/2024 2:00 PM PHOTO LAB TECHNICIAN 04/09/2024 Active Active Problems No known active problems Encounters Date Type Department Care Team Description 04/09/2024 2:16 PM PHOTO LAB TECHNICIAN - 04/09/2024 2:37 PM PHOTO LAB TECHNICIAN Hospital Encounter [facility] [address] [address] Encounter for medication refill Discharge Disposition: (A) DC to Home or Place of Residence 03/31/2024 3:57 PM PHOTO LAB TECHNICIAN - 03/31/2024 5:58 PM PHOTO LAB TECHNICIAN Hospital Encounter [facility] [address] [address] Acute nonintractable headache, unspecified headache type (Primary Dx) Discharge Disposition: (A) DC to Home or Place of Residence from Last 3 Months Family History Relation Name Status Comments Father Alive Mother Social History Tobacco Use Types Packs/Day Years Used Date Smoking Tobacco: Never Smokeless Tobacco: Never Tobacco Cessation:Counseling Given: Not Answered Alcohol Use Standard Drinks/Week Comments Not Currently 0 (1 standard drink = 0.6 oz pur e alcohol) occasionally Food Insecurity Answer Date Recorded Within the past 12 months, y ou worried that your food would run out before you got the money to buy more. Never true 04/09/19 Within the past 12 months, t he food you bought just didn t last and you didn t have money to get more. Never true 04/09/2024 Patient Safety Answer Date Recorded Within the past 12 months, y ou worried that your food would run out before you got the money to buy more. Never true 04/09/19 25 Within the past 12 months, t he food you bought just didn t last and you didn t have money to get more. Never true 04/09/2024 Comments No Sex and Gender Information Value Date Recorded Sex Assigned at Not on file Legal Sex Female 1:45 PM PHOTO LAB TECHNICIAN Gender Identity Not on file Sexual Orientation Not on file Last Filed Vital Signs Vital Sign Reading Time Taken Comments Blood Pressure 144/83 04/09/2024 1:45 PM PHOTO LAB TECHNICIAN Pulse 98 04/09/2024 1:45 PM PHOTO LAB TECHNICIAN Temperature 36.6 C (97.9 F) 04/09/2024 1:45 PM PHOTO LAB TECHNICIAN Respiratory Rate 18 04/09/2024 1:45 PM PHOTO LAB TECHNICIAN Oxygen Saturation 97% 04/09/2024 1:45 PM PHOTO LAB TECHNICIAN Inhaled Oxygen Concentration - - Weight 86.2 kg (190 lb) 02/02/2022 10:36 AM CDT Height 162.6 cm (5' 4 ) 02/02/2022 10:36 AM CDT Body Mass Index 32.61 02/02/2022 10:36 AM CDT Plan of Treatment Health Maintenance Due Date Last Done Comments HEP C SCREENING 1977 HIV ANNUAL TESTING 11/20/1995 HEPATITIS B VACCINES (1 of 3 - 19+ 3-dose series) 1996 PAP TEST 1998 MAMMOGRAM 2017 COLOGUARD 2022 COLONOSCOPY 2022 COLORECTAL CANCER SCREENING NEW 2022 FIT 2022 FOBT 2022 SIGMOIDOSCOPY 2022 COVID 19 VACCINE (1 - 2023-2 5 season) 2023 INFLUENZA VACCINE (#1) 2024 03/07/2017 HEPATITIS A VACCINES Aged Out No long er eligible based on patient's age to complete this topic HPV VACCINES Aged Out No longer eligi ble based on patient's age to complete this topic MENINGOCOCCAL VACCINES Aged Out No lo nger eligible based on patient's age to complete this topic PNEUMONIA VACCINE 0-5 AND AT RISK 6-64 Aged Out No longer eligible b ased on patient's age to complete this topic ROTAVIRUS VACCINES Aged Out No longer eligible based on patient's age to complete this topic Insurance [employer]-OUT OF STATE SELF PAY Care Teams Management Coordinator Relationship Specialty Start Date End Date Pcp, No PCP - General 02/02/22
--- NOTE | 2024-05-24 23:58 | ED.GENADULT ---
HPI - General Adult General Chief complaint: Extremity Problem,Nontraumatic Stated complaint: left shoulder pain Time Seen by Provider: 05/24/24 23:44 History of Present Illness HPI narrative: This is a 48-year-old female presenting for 1 month of shoulder pain. Pain is gotten progressively worse since her mother right after [place]. Patient is tearful during the interview and continuously references how much stress she is under. When redirected to her arm pain it is starting in the trapezius radiates down her arm. She has taking gabapentin no relief. She is able to move the arm without difficulty. Birth Certificate Clerk strength is intact. She does she has been moving significant furniture since her mother passed Related Data Allergies Allergy/AdvReac Type Severity Reaction Status Date / Time prednisone Allergy Mild Unknown Verified 05/24/24 22:18 Exam Narrative: APPEARANCE: No apparent distress. Head: atraumatic. EYES: EOMI, NOSE: Atraumatic NECK: Trachea midline no midline cervical tenderness RESPIRATORY: No increased rate of breathing CARDIOVASCULAR: RRR, ABDOMINAL: Non-distended MUSCULOSKELETAl: Focal exam of the left arm revealed tenderness over the left trapezius. No pain range of motion of the left shoulder or elbow. Birth Certificate Clerk strength is intact. Pulses are strong refills less than 2 seconds. NEURO: Alert. Moving 4/4 extremities SKIN:: Warm, dry. Normal color PSYCHIATRIC: Normal affect Course Vital Signs Vital signs: Vital Signs Temperature 97.5 F L 05/24/24 22:13 Pulse Rate 112 H 05/24/24 22:13 Respiratory Rate 20 05/24/24 22:13 Blood Pressure 171/82 H 05/24/24 22:13 Pulse Oximetry 100 05/24/24 22:13 Oxygen Delivery Room Air 05/24/24 22:13 Temperature 97.5 F L 05/24/24 22:13 Pulse Rate 112 H 05/24/24 22:13 Respiratory Rate 20 05/24/24 22:13 Blood Pressure 171/82 H 05/24/24 22:13 Pulse Oximetry 100 05/24/24 22:13 Oxygen Delivery Room Air 05/24/24 22:13 Medical Decision Making MDM Narrative Medical decision making narrative: -Course: 48-year-old female presenting with left shoulder pain x1 month. X-rays negative for acute fracture dislocation. No findings on physical exam outside some tenderness to the trapezius. Patient's pain was treated and she is discharged with primary care follow-up -DDX includes but is not limited to: Cervical radiculopathy, muscle strain, muscle spasm, stress reaction, fracture, impingement syndrome, calcific tendinitis Vital Signs Vital Signs: Vital Signs Temperature 97.5 F L 05/24/24 22:13 Pulse Rate 112 H 05/24/24 22:13 Respiratory Rate 20 05/24/24 22:13 Blood Pressure 171/82 H 05/24/24 22:13 Pulse Oximetry 100 05/24/24 22:13 Oxygen Delivery Room Air 05/24/24 22:13 Temperature 97.5 F L 05/24/24 22:13 Pulse Rate 112 H 05/24/24 22:13 Respiratory Rate 20 05/24/24 22:13 Blood Pressure 171/82 H 05/24/24 22:13 Pulse Oximetry 100 05/24/24 22:13 Oxygen Delivery Room Air 05/24/24 22:13 Discharge Plan Discharge Clinical Impression: Strain of left trapezius muscle Patient Disposition: Home, Self-Care Condition: Stable Instructions: Antibiotic Form, Shoulder Pain (ED) Additional Instructions: Please use Motrin Tylenol Robaxin for pain control. Please rest your shoulder until the pain improves. Please follow-up with your primary care for further management. Return if you develop fevers, severe pain or inability to use your hand. Patient Language: Slovak Prescriptions: New ibuprofen 800 mg tablet 800 mg PO TID PRN (Reason: pain) 7 Days Qty: 21 0RF acetaminophen 500 mg tablet 1,000 mg PO TID PRN (Reason: yunier) 7 Days Qty: 42 0RF methocarbamol 750 mg tablet 1,500 mg PO TID Qty: 35 0RF Follow-up/Referrals: Jagruti,Demarcus Rivera APRN [Primary Care Provider] -
--- NOTE | 2024-05-25 00:01 | PC.NURSE ---
AMADO per to change toradol-(ketorlac) order from IVP to IM.
[2024-05-25] MEDS: ACETAMINOPHEN 500 MG TABLET 1000 MG PO (00:08)
[2024-05-25] MEDS: diazePAM (*CRX) 5 MG TABLET PO (00:08)
[2024-05-25] MEDS: KETOROLAC 15 MG/ML VIAL (*BKC) IM (00:09)
== END 2024-05-25 00:18 | disposition home or self-care (01) ==
PROVIDERS: Emergency Provider Emergency Medicine; PCP Nurse Practitioner Family
DX: S46.812A Strain of other muscles, fascia and tendons at shoulder and upper arm level, left arm, initial encounter (principal); X50.0XXA Overexertion from strenuous movement or load, initial encounter
CPT/HCPCS: 73030; 96374; 99284; A9270; J1885